=== PATIENT | female | born 1990 | race African-American/Black ===

== ENCOUNTER 2016-05-28 20:42 | Emergency (ER) | payer MEDICAID ==
[~2016-05-28] VITALS: Ht 172.7 cm; Wt 61.0 kg
[2016-05-28] MEDS ORDERED: IBUPROFEN 800MG TABLET PO ONE (22:30)
[2016-05-28 22:40] VITALS: BP 126/77
== END 2016-05-29 00:40 | disposition home or self-care (01) ==
LOC: ER 22:44
DX: S09.90XA Unspecified injury of head, initial encounter (principal); Y04.0XXA Assault by unarmed brawl or fight, initial encounter; Y92.038 Other place in apartment as the place of occurrence of the external cause
CPT/HCPCS: 70486; 81025; 99284

== ENCOUNTER 2017-03-03 08:01 | Emergency (ER) | payer MEDICAID ==
[~2017-03-03] VITALS: Ht 172.7 cm; Wt 63.0 kg
[2017-03-03] MEDS ORDERED: KETOROLAC 30MG/ML VIAL IM ONE (10:30)
[2017-03-03 10:36] VITALS: BP 128/71
[2017-03-03] MEDS ORDERED: CYCLOBENZAPRINE 10MG TABLET PO ONE (11:15)
== END 2017-03-03 11:32 | disposition home or self-care (01) ==
LOC: ER 08:06
DX: S20.229A Contusion of unspecified back wall of thorax, initial encounter (principal); S09.90XA Unspecified injury of head, initial encounter; V49.49XA Driver injured in collision with other motor vehicles in traffic accident, initial encounter; Y93.89 Activity, other specified; Y92.410 Unspecified street and highway as the place of occurrence of the external cause; R03.0 Elevated blood-pressure reading, without diagnosis of hypertension
CPT/HCPCS: 96372; 99283; J1885

== ENCOUNTER 2017-06-23 16:18 | Emergency (ER) | payer MEDICAID ==
[~2017-06-23] VITALS: Ht 170.2 cm; Wt 62.0 kg
[2017-06-23 23:11] VITALS: BP 132/68
[2017-06-23] MEDS ORDERED: IBUPROFEN 600MG TABLET PO ONE (23:15)
== END 2017-06-23 23:13 | disposition home or self-care (01) ==
LOC: ER 21:51
DX: L02.31 Cutaneous abscess of buttock (principal)
CPT/HCPCS: 99283

== ENCOUNTER 2021-11-11 17:22 | Emergency (ER) | payer MEDICAID, MEDICARE ==
[~2021-11-11] VITALS: Ht 170.2 cm; Wt 59.0 kg
[2021-11-11 17:33] VITALS: BP 138/92
== END 2021-11-11 22:46 | disposition left against medical advice (07) ==
LOC: ER 17:22
DX: Z53.21 Procedure and treatment not carried out due to patient leaving prior to being seen by health care provider (principal)